=== PATIENT | female | born 1965 | race Asian ===

== ENCOUNTER 2019-05-21 05:29 | Inpatient (IN) | payer MEDICARE, OTHER, MEDICAID ==
[~2019-05-21] VITALS: Ht 165.1 cm; Wt 81.6 kg
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
--- NOTE | 2019-05-21 05:58 | NUR ---
Leonela baeza in ED - 05/21/19 at 0607 by ANA Patient discharged to home in stable condition. Written and verbal after care instructions given. Pt refused to sign homeless waiver.
[2019-05-21] MEDS ORDERED: ACETAMINOPHEN 325 MG TABLET PO ONE (06:00)
[2019-05-21 06:43] LABS: BASOPHILS % (AUTO) 0.6 % (0.0-2.0); EOSINOPHILS % (AUTO) 1.8 % (0.0-6.0); HEMATOCRIT 40 % (33-45); HEMOGLOBIN 13.4 g/dL (11.5-14.8); LYMPHOCYTES # (AUTO) 1.7 /CMM (0.8-4.8); LYMPHOCYTES % (AUTO) 27.6 % (20.0-44.0); MEAN CORPUSCULAR HGB CONC 33 g/dl (31.0-36.0); MEAN CORPUSCULAR VOLUME 93 fL (82-100); MONOCYTES # (AUTO) 0.7 /CMM (0.1-1.30); MONOCYTES % (AUTO) 11.4 % (2.0-12.0); NEUTROPHILS # (AUTO) 3.6 /CMM (1.8-8.9); NEUTROPHILS % (AUTO) 58.6 % (43.0-81.0); PLATELET COUNT (AUTO) 197 /CMM (150-450); RED BLOOD CELL COUNT(AUTO) 4.33 MIL/uL (4.0-5.2); WHITE BLOOD COUNT (AUTO) 6.1 K/uL (4.3-11.0)
[2019-05-21 06:52] LABS: CALCIUM, SERUM 9.1 mg/dL (8.5-10.1); CARBON DIOXIDE 28 mmol/L (21-32); CHLORIDE 101 mmol/L (98-107); CREATININE 0.8 mg/dL (0.6-1.3); POTASSIUM 4.7 mmol/L (3.5-5.1); SODIUM SERUM 136 mmol/L (136-145); UREA NITROGEN, BLOOD 21 mg/dL (7-18)
[2019-05-21 06:57] LABS: ALANINE AMINOTRANSFERASE 38 U/L (12-78); ALBUMIN 3.3 g/dL (3.4-5.0); ALCOHOL, BLOOD < 3 mg/dL (0-0); ALKALINE PHOSPHATASE 80 U/L (46-116); ASPARTATE AMINOTRANSFERASE 13 U/L (15-37); BILIRUBIN,DIRECT 0.1 mg/dL (0.0-0.2); BILIRUBIN,TOTAL 0.3 mg/dL (0.2-1.0); GLUCOSE 362 mg/dL (74-106); TOTAL PROTEIN, SERUM 7.9 g/dL (6.4-8.2)
[2019-05-21 06:59] LABS: SALICYLATE 1.6 mg/dL (2.8-20.0)
--- NOTE | 2019-05-21 06:59 | NUR ---
URINE SENT TO LAB
[2019-05-21 07:00] LABS: ACETAMINOPHEN 0 ug/ml (10-30)
[2019-05-21] MEDS ORDERED: INSULIN REGULAR, HUMAN 100 UNIT/ML 10 ML VIAL ONE ×2 (07:01→12:08)
[2019-05-21] MEDS: INSULIN LISPRO/ASPART 100 UNIT/ML CARTRIDGE SQ SCH ×2 (07:05→12:00)
[2019-05-21 07:26] LABS: APPEARANCE,URINE CLEAR (CLEAR); BILIRUBIN,URINE NEGATIVE (NEGATIVE); BLOOD, URINE TRACE-INTA Ery/uL (NEGATIVE); COLOR,URINE YELLOW (YELLOW); KETONES,URINE NEGATIVE (NEGATIVE); LEUKOCYTE ESTERASE ,URINE NEGATIVE (NEGATIVE); NITRITE, URINE NEGATIVE (NEGATIVE); PH,URINE 6.5 (5.0-8.0); PROTEIN,URINE NEGATIVE (NEGATIVE); UGLUCOSE >=1000 mg/dL (NEGATIVE); UROBILINOGEN,URINE 0.2 EU/dL (0.2)
[2019-05-21 07:55] LABS: BACTERIA,URINE Rare /HPF (None Seen)
[2019-05-21] MEDS ORDERED: HALOPERIDOL LACTATE INJ 5 MG/ML VIAL ONE ×2 (07:55→14:29)
[2019-05-21 07:56] LABS: SQUAMOUS EPITHELIAL CELL,UR Few /HPF (None Seen)
[2019-05-21] MEDS ORDERED: MIDAZOLAM HCL 2 MG/2ML VIAL ONE (07:59)
[2019-05-21] MEDS ORDERED: MIDAZOLAM HCL 2 MG/2ML VIAL IM ONE (08:00)
[2019-05-21] MEDS ORDERED: HALOPERIDOL LACTATE INJ 5 MG/ML VIAL IM ONE ×2 (08:00→14:30)
--- NOTE | 2019-05-21 08:09 | NUR ---
PT SCREAMING IN THE FACE OF NURSE IM ALDOL 5 MG I AN DVERSED 2 MG IM GIVEN PER MD
--- NOTE | 2019-05-21 08:10 | NUR ---
PT QIET VSS 100RA CONT TO MONITOR
--- NOTE | 2019-05-21 10:17 | NUR ---
PT SLEEPING SOUNDLY RESP EVEN UNLANORED
--- NOTE | 2019-05-21 12:33 | NUR ---
ACCU CK 176 PT REFUSED TO EAT NO INSULIN AT THIS TIME VSS UP AMB TO BR VOIDED
--- NOTE | 2019-05-21 12:40 | NUR ---
CALLED ART SUPERVISOR CORBY FOR EVAL, LEFT VOICEMAIL
--- NOTE | 2019-05-21 13:41 | NUR ---
[facility]BY ETA 1 HR
--- NOTE | 2019-05-21 14:56 | NUR ---
pt given haldol 5 mg im put to bed and moniotrs applied
[2019-05-21] MEDS ORDERED: OLANZAPINE 10 MG VIAL IM ONE ×2 (15:49→16:00)
--- NOTE | 2019-05-21 16:00 | NUR ---
GPS 220-B
--- NOTE | 2019-05-21 16:15 | NUR ---
IS TECHNICIAN/MED RECON UNABLE TO UPDATE HOME MEDICATION INFORMATION. PATIENT UNABLE TO PROVIDE ANY INFORMATION. CALLED AND SPOKE WITH PATIENT BROTHER-JOSE ARMANDODALLIN "I DON'T KNOW ANYTHING ABOUT HER MEDICATION, PCP OR PHARMACY".
--- NOTE | 2019-05-21 17:44 | NUR ---
report given to adrian frederick for meryl pt will be transported to gps
--- NOTE | 2019-05-21 18:25 | NUR ---
PT TRANSPORTED TO [facility]
[2019-05-21] MEDS ORDERED: MAGNESIUM HYDROXIDE 30 ML UDC PO PRN (19:00)
[2019-05-21] MEDS ORDERED: TEMAZEPAM 7.5 MG CAPSULE PO PRN (19:00)
[2019-05-21] MEDS ORDERED: MAG HYDROX/AL HYDROX/SIMETH 30 ML UDC PO PRN (19:00)
[2019-05-21] MEDS ORDERED: LORAZEPAM 0.5 MG TABLET PO PRN (19:00)
[2019-05-21] MEDS ORDERED: ACETAMINOPHEN 325 MG TABLET PO PRN (19:00)
[2019-05-21] MEDS ORDERED: BLOOD SUGAR DIAGNOSTIC 1 EACH STRIP IN ONE (19:00)
[2019-05-22 02:11] VITALS: BP 127/65
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
--- NOTE | 2019-05-22 06:46 | NUR ---
PT REFUSED SKIN CHECK, AND BLOOD DRAW
[2019-05-22 08:00] VITALS: BP 116/59
[2019-05-22] MEDS ORDERED: DEXTROSE 50%-WATER 50 ML DISP.SYRIN IV PRN (09:00)
--- NOTE | 2019-05-22 09:06 | NUR ---
ACCUCHECK 328
[2019-05-22] MEDS: BLOOD SUGAR DIAGNOSTIC 1 EACH STRIP IN SCH ×4 (09:08→22:00)
--- NOTE | 2019-05-22 09:15 | NUR ---
CALLED PHARMACY REQUESTING INSULIN
[2019-05-22] MEDS: INSULIN REGULAR, HUMAN 100 UNIT/ML 3 ML VIAL SQ PRN (10:36)
[2019-05-22 11:41] LABS: BILIRUBIN,TOTAL 0.3 mg/dL (0.2-1.0); CALCIUM, SERUM 9.4 mg/dL (8.5-10.1); CREATININE 0.8 mg/dL (0.6-1.3); POTASSIUM 4.3 mmol/L (3.5-5.1); TOTAL PROTEIN, SERUM 7.5 g/dL (6.4-8.2)
--- NOTE | 2019-05-22 12:38 | NUR ---
RN NOTE: PT REFUSED ACCUCHECK. ATTEMPTED MULTIPLE TIMES WITH PROS AND CONS REINFORCED TO PT. PT SCREAMED "NO,NO,NO". PT VERY PARANOID AND EASILY AGITATED
--- NOTE | 2019-05-22 14:14 | NUR ---
FAMILY CONTACT: MILTON contacted pts brother Black [phone] for collateral information, treatment, and discharge planning. Per brother, pt is currently homeless and has been for the past 2 years. Per brother, he attempted to place pt at a board and care several times but pt eloped every time as she refused care and refused to take medications. Brother states that pt needs to be in a locked facility as she is unable to care for herself and needs psychiatric treatment. Brother states that pt was diagnosed over 20 years ago with a mental illness and has lost her children due to it. Brother states that both pts son and daughter were taken away from her when they were children, per brother they are now adults and have no relationship with pt. Brother does state that pts daughter recently reunited with pt after 20 years and has seen her twice. Brother states that pt has 8 siblings but they want nothing to do with her and he is the only one who has a relationship with pt. Brother states that pt has severe anger issues and non-compliance with medication. Brother wishes for pt to be discharged to a locked SNF. MILTON will help from a safe and proper discharge in collaboration with
[2019-05-22 16:00] VITALS: BP 150/81
--- NOTE | 2019-05-22 16:14 | NUR ---
RN NOTE: ATTEMPTED TO OBTAIN BLOOD SUGAR. PT BECAME ANGRY, HOSTILE AND SWUNG AT NURSE.
[2019-05-22 20:49] VITALS: BP 140/68
--- NOTE | 2019-05-23 00:56 | NUR ---
PT REFUSED 2200 BLOOD SUGAR CHECK 05/22/2019
[2019-05-23] MEDS: BLOOD SUGAR DIAGNOSTIC 1 EACH STRIP IN SCH ×4 (07:30→21:59)
[2019-05-23 08:00] VITALS: BP 114/74
[2019-05-23] MEDS: risperiDONE 1 MG TABLET PO SCH ×2 (09:21→16:09)
--- NOTE | 2019-05-23 10:48 | NUR ---
INITIAL DISCHARGE PLAN: Patient refuses placement and states that she wishes to go to her brothers house. Per brother Black [phone] pt cannot go to his home and states pt is homeless and needs locked SNF placement as pt is unable to care for herself. SW will help form a safe and proper discharge in collaboration with .
[2019-05-23] MEDS: INSULIN REGULAR, HUMAN 100 UNIT/ML 3 ML VIAL SQ PRN ×2 (11:44→22:02)
--- NOTE | 2019-05-23 11:47 | NUR ---
RN NOTE: ACCUCHECK 497 WITH 10 U R INSULIN COVERAGE. WILL FOLLOW UP WITH REPEAT ACCUCHECK.
--- NOTE | 2019-05-23 11:47 | NUR ---
ACCUCHECK 497, 10 U R INSULIN COVERAGE. WILL MONITOR WITH REPEAT ACCUCHECK.
--- NOTE | 2019-05-23 12:52 | NUR ---
RN NOTE: PT REFUSED FOLLOW UP ACCUCHECK. WILL REPEAT AT SCHEDULED 17:30 TIME. NO PRESENT S/SX OF HYPER OR HYPOGLYCEMIA. WILL CONT TO MONITOR
--- NOTE | 2019-05-23 15:41 | NUR ---
GROUP NOTE: SW encouraged pt to participate in group on this present day discussing "positive coping skills." Pt refused to participate stating, "no no no" pts mood is angry and easily agitated. SW unable to provide intervention due to pts current mood.
[2019-05-23 16:00] VITALS: BP 139/67
[2019-05-23 20:30] VITALS: BP 125/70
--- NOTE | 2019-05-23 22:06 | NUR ---
GPS RN NOTE PATIENT'S BS LEVEL IS 360 MG/DL, 10 UNITS OF SLIDING SCALE INSULIN GIVEN. SNACK WAS ALSO GIVEN TO THE PATIENT WAS GIVEN. WILL CONTINUE TO MONITOR FOR SAFETY & BEHAVIOR.
[2019-05-24] MEDS: BLOOD SUGAR DIAGNOSTIC 1 EACH STRIP IN SCH ×4 (07:44→21:11)
[2019-05-24] MEDS: INSULIN REGULAR, HUMAN 100 UNIT/ML 3 ML VIAL SQ PRN ×3 (07:50→21:14)
[2019-05-24 08:00] VITALS: BP 121/80
[2019-05-24] MEDS: risperiDONE 1 MG TABLET PO SCH ×2 (08:51→16:44)
[2019-05-24 16:00] VITALS: BP 115/73
--- NOTE | 2019-05-24 16:01 | NUR ---
GROUP NOTE: SW encouraged pt to attend group therapy on this present day discussing "reality testing." Pt refused to participate, SW attempted to provide intervention and pt walked away and did not engage with SW.
--- NOTE | 2019-05-24 17:33 | NUR ---
PT REFUSED EVENING ACCUCHECK. PATIENT STATES GETTING TIRED OF GETTING POKED EVERY SEVERAL HOURS. ATTEMPTED MULTIPLE TIMES BUT PT CONTINUES TO REFUSE.
[2019-05-24 19:46] VITALS: BP 110/64
[2019-05-24 20:00] VITALS: BP 110/64
--- NOTE | 2019-05-24 21:14 | NUR ---
GPS RN NOTE PATIENT'S BS LEVEL IS 313 MG/DL, PER SLIDING SCALE, 8 UNITS GIVEN. PT. HAD SNACK & TOLERATED WELL. WILL CONTINUE TO MONITOR FOR ANY CHANGES.
[2019-05-24 21:30] VITALS: BP 113/65
--- NOTE | 2019-05-25 00:55 | NUR ---
GPS RN NOTE PATIENT IS SLEEPING AT THIS TIME. CALM, RELAXED. WILL CONTINUE TO MONITOR FOR ANY CHANGES.
[2019-05-25] MEDS: BLOOD SUGAR DIAGNOSTIC 1 EACH STRIP IN SCH ×4 (07:42→21:54)
[2019-05-25] MEDS: INSULIN REGULAR, HUMAN 100 UNIT/ML 3 ML VIAL SQ PRN ×4 (07:45→22:02)
[2019-05-25 08:00] VITALS: BP 146/53
[2019-05-25] MEDS: risperiDONE 1 MG TABLET PO SCH ×2 (08:20→17:14)
--- NOTE | 2019-05-25 15:44 | NUR ---
GROUP NOTE: SW encouraged pt to participate in group therapy on this present day discussing "discharge planning." Pt states she refuses to go to a fdc or board and care and wants to return to the streets. Pt is alert and oriented x2 and her insight and judgment is impaired.
[2019-05-25 16:00] VITALS: BP 124/79
[2019-05-25 20:45] VITALS: BP 119/74
[2019-05-25 22:35] VITALS: BP 124/79
[2019-05-26] MEDS: BLOOD SUGAR DIAGNOSTIC 1 EACH STRIP IN SCH ×4 (07:48→21:19)
[2019-05-26 08:00] VITALS: BP 124/65
[2019-05-26] MEDS: risperiDONE 1 MG TABLET PO SCH ×2 (08:11→17:08)
[2019-05-26] MEDS: INSULIN REGULAR, HUMAN 100 UNIT/ML 3 ML VIAL SQ PRN ×4 (08:13→21:30)
[2019-05-26 16:00] VITALS: BP 121/75
[2019-05-26 20:18] VITALS: BP 126/78
--- NOTE | 2019-05-26 21:10 | NUR ---
RN NOTE: PT MED WITH RESTORIL FOR INSOMNIA AND XANAX FOR ANXIETY.
[2019-05-26] MEDS: INSULIN GLARGINE, 100 UNIT/ML CARTRIDGE SQ SCH (21:35)
[2019-05-27 08:00] VITALS: BP 136/57
[2019-05-27] MEDS: BLOOD SUGAR DIAGNOSTIC 1 EACH STRIP IN SCH ×4 (08:05→21:56)
[2019-05-27] MEDS: INSULIN REGULAR, HUMAN 100 UNIT/ML 3 ML VIAL SQ PRN ×3 (08:09→18:30)
[2019-05-27] MEDS: risperiDONE 1 MG TABLET PO SCH ×2 (08:12→16:07)
[2019-05-27 16:00] VITALS: BP 140/68
[2019-05-27 19:57] VITALS: BP 103/70
--- NOTE | 2019-05-27 21:54 | NUR ---
GPS NURSE EMIL REFUSED 2200 ACCUCHECK. STATES SHE HAS BEEN POKED TOO MANY TIMES DURING THE DAY AND JUST WANTS TO SLEEP. CHARGE NURSE ELISHA MADE AWARE.
[2019-05-27] MEDS: INSULIN GLARGINE, 100 UNIT/ML CARTRIDGE SQ SCH (21:56)
--- NOTE | 2019-05-27 21:56 | NUR ---
GPS NURSE MARY 20 UNITS HELD D/T ACCUCHECK NOT DONE.
[2019-05-28 08:00] VITALS: BP 130/75
[2019-05-28] MEDS: BLOOD SUGAR DIAGNOSTIC 1 EACH STRIP IN SCH ×4 (08:06→22:54)
[2019-05-28] MEDS: risperiDONE 1 MG TABLET PO SCH ×2 (08:08→16:18)
[2019-05-28] MEDS: INSULIN REGULAR, HUMAN 100 UNIT/ML 3 ML VIAL SQ PRN ×3 (08:11→22:59)
[2019-05-28 16:00] VITALS: BP 120/79
[2019-05-28 20:16] VITALS: BP 101/61
[2019-05-28] MEDS: INSULIN GLARGINE, 100 UNIT/ML CARTRIDGE SQ SCH (22:57)
[2019-05-29] MEDS: BLOOD SUGAR DIAGNOSTIC 1 EACH STRIP IN SCH ×4 (07:30→22:11)
[2019-05-29 08:00] VITALS: BP 141/83
[2019-05-29] MEDS: INSULIN REGULAR, HUMAN 100 UNIT/ML 3 ML VIAL SQ PRN ×4 (08:44→22:22)
[2019-05-29] MEDS: risperiDONE 1 MG TABLET PO SCH ×2 (08:46→17:33)
--- NOTE | 2019-05-29 09:16 | NUR ---
SNF REFERRAL: SW faxed SNF referral to Dwayne move coordinator at [facility] ([facility]) [address] [place] [address] P: [phone] for review.
--- NOTE | 2019-05-29 10:35 | NUR ---
SNF REFERRAL: SW received a call from Dwayne life skills coordinator at [facility] ([facility]) [address] [place] [address] P: [phone] stating pt has been accepted to the facility.
[2019-05-29 16:00] VITALS: BP 131/83
[2019-05-29 20:43] VITALS: BP 129/76
[2019-05-29] MEDS: INSULIN GLARGINE, 100 UNIT/ML CARTRIDGE SQ SCH (22:21)
[2019-05-30] MEDS: BLOOD SUGAR DIAGNOSTIC 1 EACH STRIP IN SCH ×4 (07:51→21:36)
[2019-05-30] MEDS: INSULIN REGULAR, HUMAN 100 UNIT/ML 3 ML VIAL SQ PRN ×4 (07:59→22:01)
[2019-05-30 08:00] VITALS: BP 125/80
[2019-05-30] MEDS: risperiDONE 1 MG TABLET PO SCH ×2 (08:50→16:51)
--- NOTE | 2019-05-30 15:55 | NUR ---
GROUP NOTE: SW encouraged pt to attend group on this present day discussing "suicidal urges." Pt was actively hallucinating, yelling and screaming in the bathroom and refused to attend group.
[2019-05-30 16:00] VITALS: BP 154/68
[2019-05-30 20:41] VITALS: BP 135/79
[2019-05-30] MEDS: INSULIN GLARGINE, 100 UNIT/ML CARTRIDGE SQ SCH (22:06)
[2019-05-31 08:00] VITALS: BP 131/94
[2019-05-31] MEDS: BLOOD SUGAR DIAGNOSTIC 1 EACH STRIP IN SCH ×2 (08:06→12:00)
[2019-05-31] MEDS: risperiDONE 1 MG TABLET PO SCH (08:20)
[2019-05-31] MEDS: INSULIN REGULAR, HUMAN 100 UNIT/ML 3 ML VIAL SQ PRN (08:24)
--- NOTE | 2019-05-31 10:34 | NUR ---
DISCHARGE NOTE: Pt will be discharging at 2:00pm [facility] ([facility]) [address] [place] [address] P: [phone]. Pts brother Black [phone] has been notified via voicemail. Pts mood is euthymic with congruent affect. Pt denied visual/auditory hallucinations and denied suicidal/homicidal ideation. Pt signed homeless waiver and was given homeless resources. Pt will be under the care of Psychiatrist: Dr. Basilio Address: [address] [place] [address] and [employer] Consultant: Dr Narayan Address: [address] [address] [phone]. The multidisciplinary exit care form was done, printed, signed, and given to the patient.
--- NOTE | 2019-05-31 15:28 | NUR ---
PATIENT IS A 54 YEAR OLD FEMALE DISCHARGED TO [facility] [address] [facility] [id number] . PATIENT IS IN STABLE CONDITION. VSS. NO ACUTE DISTRESS NOTED. NO COMPLAINTS. COMPLIANT WITH MEDICATION MANAGEMENT. COOPERATIVE WITH PLAN OF CARE. PSYCHIATRIC TREATMENT PLANS MET. MEDICAL TREATMENT PLANS DEFERRED FOR CONTINUAL MONITORING. DENIES SI/HI VAH AT THE TIME OF DISCHARGE. PATIENT REFUSED SKIN CHECK. EDUCATED PATIENT ABOUT AFTERCARE WITH COPY PROVIDED. RETURNED PERSONAL BELONGINGS TO PATIENT. MEDICATIONS RECONCILED WITH DR WORTHY AND DR WELLS ALONG WITH PSYCHIATRIC DISCHARGE ORDERS. DISCHARGE PAPERWORK SIGNED. FOR FOLLOW UP WITH PSYCHIATRIST DR WELLS [id number] [facility] [id number] PHAM [address] [facility] [address] [facility] [id number] WITHIN 1 WEEK. PATIENT [facility] GPS VIA [facility] AT 1430.
== END 2019-05-31 14:30 | DRG 885 ==
LOC: EDBD 05:33 → ER 05:33 → GPS 16:06
PROVIDERS: ADMIT Psychiatry & Neurology Psychiatry; ATTEND Nurse Practitioner Acute Care
DX: F29 Unspecified psychosis not due to a substance or known physiological condition (principal); E11.65 Type 2 diabetes mellitus with hyperglycemia; E44.1 Mild protein-calorie malnutrition; F20.9 Schizophrenia, unspecified; Z68.30 Body mass index [BMI] 30.0-30.9, adult; E88.09 Other disorders of plasma-protein metabolism, not elsewhere classified; I10 Essential (primary) hypertension; J45.909 Unspecified asthma, uncomplicated; Z91.19 Patient's noncompliance with other medical treatment and regimen; Z91.14 Patient's other noncompliance with medication regimen; R26.9 Unspecified abnormalities of gait and mobility; M62.81 Muscle weakness (generalized); M19.90 Unspecified osteoarthritis, unspecified site; M85.80 Other specified disorders of bone density and structure, unspecified site; R79.89 Other specified abnormal findings of blood chemistry
CPT/HCPCS: 36415; 72100-TC; 80048-TC; 80053-TC; 80061-TC; 80076-TC; 80305; 81000-TC; 82962-TC; 84703-TC; 85025-TC; 87081-TC; G0480; J1630; J1815; J2250; J3490